=== PATIENT | female | born 1965 | race Caucasian/White ===

== ENCOUNTER 2018-03-11 09:00 | Day surgery (SDC) | payer BC ==
[~2018-03-11] VITALS: Ht 162.6 cm; Wt 77.1 kg
[~2018-03-11 09:00] MED LIST: AMLODIPINE10 MG PO; JUNEL F1 PO; LOSARTAN POTAS100 MG PO; SM IRON325 MG PO; TOPROL XL100 MG PO
[2018-03-11 09:38] LABS: HEMATOCRIT 37.8 % (37.0-47.0); HEMOGLOBIN 12.1 g/dl (12.0-16.0); IMMATURE GRANULOCYTES 0.4 % (0.0-1.0); MEAN CELL VOLUME 85.5 fL CALC (80.0-100.0); MEAN CORPUSCULAR HGB 27.4 pG CALC (26.0-32.0); NEUT# 5.82 thou/uL (2.00-7.15); RED BLOOD COUNT 4.42 mill/uL (4.20-5.60); RED CELL DISTRI WIDTH 15.2 % (11.5-15.5)
[2018-03-11 10:52] VITALS: BP 125/71
== END 2018-03-11 10:50 | disposition home or self-care (01) | DRG 394 ==
LOC: ENDO 09:00 → ORM 12:00
PROVIDERS: Nurse Anesthetist, Certified Registered; ATTEND Surgery
PROC: 0DB78ZX Excision of Stomach, Pylorus, Via Natural or Artificial Opening Endoscopic, Diagnostic (ICD-10-PCS; principal; 2018-03-11)
PROC: 0DJD8ZZ Inspection of Lower Intestinal Tract, Via Natural or Artificial Opening Endoscopic (ICD-10-PCS; 2018-03-11)
DX: K64.4 Residual hemorrhoidal skin tags (principal); K64.8 Other hemorrhoids; K29.50 Unspecified chronic gastritis without bleeding; I10 Essential (primary) hypertension; D50.9 Iron deficiency anemia, unspecified; E78.00 Pure hypercholesterolemia, unspecified; Q40.2 Other specified congenital malformations of stomach; K92.2 Gastrointestinal hemorrhage, unspecified

== ENCOUNTER 2018-04-01 08:23 | Day surgery (SDC) | payer BC ==
[~2018-04-01] VITALS: Ht 162.6 cm; Wt 77.1 kg
[~2018-04-01 08:23] MED LIST changes: +ESTROVE1 PO; +OMEPRAZOLE20 MG PO
[2018-04-01] MEDS ORDERED: PERCOCET 5/325M1 TAB PO (10:39)
[2018-04-01] MEDS ORDERED: NEURONTIN300 MG PO (10:39)
[2018-04-01] MEDS ORDERED: MOTRIN800 MG PO (10:39)
[2018-04-01] MEDS ORDERED: LIDOCAINE22 PR (10:39)
[2018-04-01 11:51] VITALS: BP 156/51
== END 2018-04-01 11:20 | disposition home or self-care (01) | DRG 349 ==
LOC: ORM 08:23
PROVIDERS: ATTEND Surgery
PROC: 06BY3ZC Excision of Hemorrhoidal Plexus, Percutaneous Approach (ICD-10-PCS; principal; 2018-04-01)
DX: K64.4 Residual hemorrhoidal skin tags (principal); I10 Essential (primary) hypertension; E78.00 Pure hypercholesterolemia, unspecified; D50.9 Iron deficiency anemia, unspecified
CPT/HCPCS: C9290

== ENCOUNTER → 2018-11-25 | Outpatient (REF) | payer BC ==
[~2018-11-25] MED LIST changes: +LIDOCAINE22 PR; +MOTRIN800 MG PO; +NEURONTIN300 MG PO; +PERCOCET 5/325M1 TAB PO
== END | disposition home or self-care (01) | DRG 311 ==
LOC: STRESS 15:38 → NUCMED 15:45
PROVIDERS: ATTEND Internal Medicine
DX: I20.9 Angina pectoris, unspecified (principal); R06.02 Shortness of breath
CPT/HCPCS: A9502; J0706; J2785

== ENCOUNTER 2024-04-30 14:00 | Emergency (ER) | payer OTHER, BC ==
[2024-04-30] VITALS (8 sets, daily range): BP systolic 133–180; BP diastolic 69–90
[~2024-04-30] VITALS: Ht 162.6 cm; Wt 82.0 kg
[2024-04-30] MEDS ORDERED: KETOROLAC TROMETHAMINE 30 MG/ML SDV IM ONE (14:35)
[2024-04-30] MEDS ORDERED: MOTRIN400 MG/TAB PO (15:48)
[2024-04-30] MEDS ORDERED: TRAMADOL HYDROC50 M1 PO (15:48)
[2024-04-30] MEDS ORDERED: NEOMYCIN-BACITRACIN-POLYMYXIN 0.5 GM/PAK PAK TOP ONE (15:55)
== END 2024-04-30 16:07 | disposition home or self-care (01) | DRG 605 ==
LOC: ED 14:00
DX: S80.01XA Contusion of right knee, initial encounter (principal); I10 Essential (primary) hypertension; E11.9 Type 2 diabetes mellitus without complications; W18.30XA Fall on same level, unspecified, initial encounter; Y92.219 Unspecified school as the place of occurrence of the external cause; Y99.0 Civilian activity done for income or pay

== ENCOUNTER 2024-05-18 18:47 | Emergency (ER) | payer OTHER, BC ==
[~2024-05-18] VITALS: Ht 162.6 cm; Wt 81.0 kg
[~2024-05-18 18:47] MED LIST changes: +MOTRIN400 MG/TAB PO; +TRAMADOL HYDROC50 M1 PO
[2024-05-18 19:05] VITALS: BP 166/76
[2024-05-18 19:16] VITALS: BP 155/73
[2024-05-18 19:31] VITALS: BP 161/84
[2024-05-18 19:45] VITALS: BP 150/82
[2024-05-18 19:50] LABS: BASO% 1.3 % (0-3); EOS% 3.6 % (0-8); HEMATOCRIT 39.2 % (37.0-47.0); HEMOGLOBIN 12.8 g/dl (12.0-16.0); IMMATURE GRANULOCYTES 0.3 % (0.0-5.0); MEAN CELL VOLUME 88.7 fL CALC (80.0-100.0); MEAN CORPUSCULAR HGB CONC 32.7 g/dL CAL (32.0-36.0); MONO% 6.4 % (2-13); NEUT# 5.86 thou/uL (2.00-7.15); NEUT% 63.4 % (42-76); RED BLOOD COUNT 4.42 mill/uL (4.20-5.60); RED CELL DISTRI WIDTH 14.4 % (11.5-15.5)
[2024-05-18 20:01] LABS: CREATININE 0.5 mg/dL (0.5-1.0); POTASSIUM 4.2 mmol/l (3.5-5.1)
[2024-05-18 20:10] LABS: ACT PARTIAL THROMBO TIME 25.6 SECONDS (20.0-32.5); INTERNATIONAL NORMALIZED RATIO 1.1 RATIO (0.7-1.3)
[2024-05-18 20:11] LABS: PROTHROMBIN TIME 10.4 SECONDS (9.0-12.5)
[2024-05-18 20:53] VITALS: BP 150/82
== END 2024-05-18 20:53 | disposition home or self-care (01) | DRG 605 ==
LOC: ED 18:47
PROVIDERS: Family Medicine
DX: S80.01XA Contusion of right knee, initial encounter (principal); W19.XXXA Unspecified fall, initial encounter